=== PATIENT | male | born 1985 | race Caucasian/White ===

== ENCOUNTER 2023-04-13 09:37 | Emergency (ER) | payer SELFPAY ==
[2023-04-13] MEDS ORDERED: Ketorolac Tromethamine 30 MG (1 mL) VIAL ONE (11:13)
== END 2023-04-13 12:58 | disposition home or self-care (01) ==
LOC: ERS 09:37
DX: M54.2 Cervicalgia (principal); F17.290 Nicotine dependence, other tobacco product, uncomplicated
CPT/HCPCS: 72125; 96372; J1885

== ENCOUNTER 2023-04-16 16:14 | Emergency (ER) | payer SELFPAY | END 2023-04-16 17:30 | disposition home or self-care (01) | LOC: ERS 16:14 | DX: Z76.0 Encounter for issue of repeat prescription (principal); F17.290 Nicotine dependence, other tobacco product, uncomplicated | CPT/HCPCS: 99283 ==

== ENCOUNTER 2023-05-07 17:02 | Emergency (ER) | payer SELFPAY ==
[2023-05-07 18:22] LABS: #Basophils 0.1 thou/uL (0.0-0.2); #Eosinphils 0.2 thou/uL (0.0-0.7); #Monocytes 0.6 thou/uL (0.11-0.59); #Neutrophils 5.6 thou/uL (1.40-6.50); %Basophils 0.6 % (0.0-1.0); %Eosinophils 2.6 % (0.0-10.0); %Lymphocytes 24.2 % (21.0-51.0); %Monocytes 7.3 % (0.0-10.0); Hematocrit 42.9 % (42.0-52.0); Hemoglobin 14.7 g/dL (14.0-18.0); Mean Corpuscular HGB CONC 34.3 g/dL (32.0-36.0); Mean Corpuscular Hemoglobin 30.8 pg (27.0-31.0); Mean Corpuscular Volume 89.9 fl (78.0-98.0); Mean Platelet Volume 9.8 fL (7.4-10.4); Platelet Count 251 10x3/uL (130-400); RBC Distribution Width 12.3 % (11.5-14.5); Red Blood Cell (RBC) Count 4.77 mill/uL (4.70-6.10); White Blood Cell (WBC) Count 8.7 10x3/uL (4.8-10.8)
[2023-05-07 18:42] LABS: Troponin I 0.012 ng/mL (< 0.028)
[2023-05-07 18:49] LABS: ALT (SGPT) 19 U/L (8-55); AST (SGOT) 14 U/L (5-34); Albumin 4.6 g/dL (3.5-5.0); Alkaline Phosphatase 110 U/L (40-110); Anion Gap 9 mmol/L (10-20); BUN (Urea Nitrogen) 11 mg/dL (8.9-20.6); Bilirubin, Total 0.4 mg/dL (0.2-1.2); Calc. Creatinine Clearance 0 mL/min (70-130); Calcium 9.8 mg/dL (7.8-10.44); Carbon Dioxide 27 mmol/L (22-29); Chloride 107 mmol/L (98-107); Estimated GFR 117; Globulin 2.9 g/dL (2.4-3.5); Glucose 88 mg/dL (70-105); Potassium 3.9 mmol/L (3.5-5.1); Protein, Total 7.5 g/dL (6.0-8.3); Sodium 139 mmol/L (136-145)
== END 2023-05-07 19:46 | disposition home or self-care (01) ==
LOC: ERS 17:02
DX: I10 Essential (primary) hypertension (principal); F41.9 Anxiety disorder, unspecified; F32.A Depression, unspecified; Z87.891 Personal history of nicotine dependence
CPT/HCPCS: 36415; 71045; 80053; 84484; 85025; 93005

== ENCOUNTER 2023-05-11 19:04 | Emergency (ER) | payer SELFPAY ==
[2023-05-11 20:06] LABS: SARS-CoV-2 NAA Rapid Test DETECTED (NotDetected)
== END 2023-05-11 20:42 | disposition home or self-care (01) ==
LOC: ERS 19:04
DX: U07.1 COVID-19 (principal); Z87.891 Personal history of nicotine dependence
CPT/HCPCS: 99283